=== PATIENT | male | born 1970 | race Caucasian/White ===

== ENCOUNTER 2024-09-16 09:07 | Day surgery (SDC) | payer OTHER, SELFPAY | END 2024-09-16 16:45 | disposition home or self-care (01) | LOC: GI 09:07 | PROVIDERS: ATTENDING PHYSICIAN Student in an Organized Health Care Education/Training Program | DX: K62.5 Hemorrhage of anus and rectum (principal); Z83.719 Family history of colon polyps, unspecified; K64.0 First degree hemorrhoids | CPT/HCPCS: 45385; 45380; 88305 ==